=== PATIENT | male | born 1945 | race Caucasian/White ===

== ENCOUNTER 2021-01-02 13:08 | Emergency (ER) | payer MEDICARE, OTHER ==
--- NOTE | 2021-01-02 14:35 | EDM.PDOC ---
ED HPI GENERAL MEDICAL PROBLEM - General Chief Complaint: Flank Pain Stated Complaint: FELL ON STEPS AT CABIN Time Seen by Provider: 01/02/21 14:10 Source of Information: Reports: Patient, Family History Limitations: Reports: No Limitations - History of Present Illness INITIAL COMMENTS - FREE TEXT/NARRATIVE: 75-year-old male slipped on some wet steps last night about midnight landing hard on his left posterior hip. Today is swollen and painful, very little pain when up and ambulating but if he sits or turns a certain way he has a sharp pain. His noticed some swelling so thought he should get checked. No abdominal pain, no chest pain, no shortness of breath. Onset: Sudden Duration: Hour(s): (14 hours ago) Location: Reports: Other (Left posterior hip) Associated Symptoms: Reports: No Other Symptoms - Related Data Allergies Allergy/AdvReac Type Severity Reaction Status Date / Time No Known Allergies Allergy Verified 01/02/21 13:40 Home Meds: Home Meds Aspirin 1 tab PO DAILY 01/02/21 [History] Latanoprost/Pf [Latanoprost 0.005% Eye Drop] 1 drop EYEBOTH DAILY 01/02/21 [History] atorvaSTATin Calcium [Lipitor] 1 tab PO DAILY 01/02/21 [History] Past Medical History Cardiovascular History: Reports: High Cholesterol - Past Surgical History Cardiovascular Surgical History: Reports: Coronary Artery Bypass Musculoskeletal Surgical History: Reports: Shoulder Surgery Social & Family History - Tobacco Use Tobacco Use Status *Q: Never Tobacco User ED ROS GENERAL - Review of Systems Review Of Systems: See Below Constitutional: Denies: Fever, Chills Respiratory: Denies: Shortness of Breath Cardiovascular: Denies: Chest Pain GI/Abdominal: Denies: Abdominal Pain, Nausea, Vomiting Skin: Denies: Bruising, Rash Neurological: Denies: Paresthesia Psychiatric: Reports: No Symptoms ED EXAM,LOWER BACK PAIN/INJURY - Physical Exam Exam: See Below Exam Limited By: No Limitations General Appearance: Alert, No Apparent Distress Head: Atraumatic Respiratory/Chest: No Respiratory Distress, Lungs Clear, Other (No chest wall tenderness) Cardiovascular: Regular Rate, Rhythm Back Exam: Other (Only tender area is a swollen area just above the SI joint on the extreme lower left back, a fairly obvious moderate hematoma is palpable in this area.). No: CVA Tenderness (R), CVA Tenderness (L), Paraspinal Tenderness, Vertebral Tenderness Extremities: Other (Ambulates without difficulty) Neurological: Alert, No Motor/Sensory Deficits Psychiatric: Normal Affect, Normal Mood Skin Exam: Warm, Dry Course - Vital Signs Last Recorded V/S: Last Vital Signs Temp 98.1 F 01/02/21 13:49 Pulse 71 01/02/21 13:49 Resp 17 01/02/21 13:49 BP 138/82 01/02/21 13:49 Pulse Ox 99 01/02/21 13:49 - Re-Assessments/Exams Free Text/Narrative Re-Assessment/Exam: 01/02/21 14:33 This patient has a contusion in the left sacroiliac area with a small hematoma, no bony tenderness or reason for imaging at this time. Recommending ice for another 24 hours, anti-inflammatories, and increase activity as tolerated and return anytime if symptoms are worsening or he develops other concerns. Departure - Departure Time of Disposition: 14:46 Disposition: Home, Self-Care 01 Clinical Impression: Contusion of sacrum Qualifiers: Encounter type: initial encounter Qualified Code(s): S30.0XXA - Contusion of lower back and pelvis, initial encounter Hematoma of hip Qualifiers: Encounter type: initial encounter Laterality: left Qualified Code(s): S70.02XA - Contusion of left hip, initial encounter - Discharge Information Instructions: Tailbone Injury, [id number] Referrals: PCP,None [Primary Care Provider] - Forms: ED Department Discharge Care Plan Goals: Ice to area will be beneficial for another day, a regular dose of ibuprofen or naproxen like Aleve will also help. Increase activity as tolerated and return anytime if you feel you are worsening or develop other concerns. Sepsis Event Note (ED) - Evaluation Sepsis Screening Result: No Definite Risk - Focused Exam Vital Signs: Vital Signs Temp Pulse Resp BP Pulse Ox 01/02/21 13:49 98.1 F 71 17 138/82 99 01/02/21 13:40 98.1 F 71 17 138/82 99
== END 2021-01-02 14:47 | disposition home or self-care (01) ==
LOC: JP.ED 13:08
DX: S70.02XA Contusion of left hip, initial encounter (principal); S30.0XXA Contusion of lower back and pelvis, initial encounter; E78.00 Pure hypercholesterolemia, unspecified; Z79.82 Long term (current) use of aspirin; Z79.899 Other long term (current) drug therapy; W10.9XXA Fall (on) (from) unspecified stairs and steps, initial encounter
CPT/HCPCS: 99282; 99283